=== PATIENT | female | born 1950 | race Caucasian/White ===

== ENCOUNTER 2016-07-19 13:05 | Emergency (ER) | payer OTHER ==
[~2016-07-19] VITALS: Ht 167.6 cm; Wt 82.1 kg
[~2016-07-19 13:05] MED LIST: ALBU18HF2 IH; AMLO10TA2 PO; ATOR80TA PO; AZIT250T6 PO; CELE200C PO; FLUT1DIS3 INH; HYDR25TA4 PO; OMEP20CA4 PO; PARO20TA6 PO; PRED50TA PO
[2016-07-19 13:09] VITALS: BP 127/70
[2016-07-19] MEDS ORDERED: predniSONE 20 MG TABLET ONE (13:52)
[2016-07-19] MEDS ORDERED: predniSONE 20 MG TABLET PO ONE (14:00)
[2016-07-19] MEDS ORDERED: IPRATROPIUM NEB FS 0.5 MG/2.5 ML AMPUL.NEB NEB ONE (14:00)
[2016-07-19] MEDS ORDERED: ALBUTEROL FS 2.5 MG/3 ML VIAL.NEB NEB ONE ×2 (14:00→15:00)
[2016-07-19] MEDS ORDERED: IPRATROPIUM NEB FS 0.5 MG/2.5 ML AMPUL.NEB ONE (14:02)
[2016-07-19] MEDS ORDERED: ALBUTEROL FS 2.5 MG/3 ML VIAL.NEB ONE ×2 (14:02→14:44)
[2016-07-19] MEDS ORDERED: ACETAMINOPHEN 325 MG TABLET ONE (15:11)
[2016-07-19] MEDS ORDERED: ACETAMINOPHEN 650 MG/20.3 ML UDC PO ONE (15:30)
== END 2016-07-19 15:22 | disposition home or self-care (01) ==
LOC: ER 13:08
DX: J06.9 Acute upper respiratory infection, unspecified (principal); I10 Essential (primary) hypertension; J45.909 Unspecified asthma, uncomplicated
CPT/HCPCS: 71010-TC; A4606; Z7610

== ENCOUNTER 2016-07-22 14:38 | Emergency (ER) | payer OTHER ==
[~2016-07-22] VITALS: Ht 167.6 cm; Wt 86.2 kg
[2016-07-22] MEDS ORDERED: ALBUTEROL FS 2.5 MG/3 ML VIAL.NEB NEB ONE (15:00)
[2016-07-22] MEDS ORDERED: IPRATROPIUM NEB FS 0.5 MG/2.5 ML AMPUL.NEB NEB ONE (15:00)
[2016-07-22] MEDS ORDERED: predniSONE 20 MG TABLET PO ONE (15:00)
[2016-07-22] MEDS ORDERED: ALBUTEROL FS 2.5 MG/3 ML VIAL.NEB ONE (15:04)
[2016-07-22] MEDS ORDERED: IPRATROPIUM NEB FS 0.5 MG/2.5 ML AMPUL.NEB ONE (15:04)
[2016-07-22] MEDS ORDERED: predniSONE 20 MG TABLET ONE (15:11)
[2016-07-22 15:54] VITALS: BP 121/51
== END 2016-07-22 16:13 | disposition home or self-care (01) ==
LOC: ER 14:45
DX: J45.901 Unspecified asthma with (acute) exacerbation (principal); J20.9 Acute bronchitis, unspecified; I10 Essential (primary) hypertension; K21.9 Gastro-esophageal reflux disease without esophagitis; Z85.828 Personal history of other malignant neoplasm of skin
CPT/HCPCS: 71010-TC; A4606; Z7610

== ENCOUNTER 2019-04-10 18:10 | Emergency (ER) | payer MEDICARE, OTHER ==
[~2019-04-10] VITALS: Ht 167.6 cm; Wt 79.4 kg
[~2019-04-10 18:10] MED LIST changes: -AMLO10TA2 PO; +AMLO10TA7 PO; -AZIT250T6 PO; -PARO20TA6 PO; +PARO20TA7 PO; -PRED50TA PO
--- NOTE | 2019-04-10 18:22 | NUR ---
PT BIB SORETHROAT AND LOWER LIP PAIN X 5 DAYS, PAIN ON SWALLOWING. PT STATED SHE PUT CREAM ON HER LIP 5 DAYS AGO AND HAD DIFFICULTY SWALLOWING AND BREATHING SINCE THEN. PT AAOX4, VSS W/ NAD, AMBULATORY W/ STEADY GAIT. PT CONNECTED TO THE MONITOR.
[2019-04-10 19:01] VITALS: BP 140/84
== END 2019-04-10 19:02 | disposition home or self-care (01) ==
LOC: ER 18:10
DX: J02.9 Acute pharyngitis, unspecified (principal); I10 Essential (primary) hypertension; J45.909 Unspecified asthma, uncomplicated; K21.9 Gastro-esophageal reflux disease without esophagitis; Z85.828 Personal history of other malignant neoplasm of skin; Z79.899 Other long term (current) drug therapy